=== PATIENT | female | born 2000 ===

== ENCOUNTER → 2020-06-20 | Outpatient (CLI) | payer OTHER | END | disposition home or self-care (01) | LOC: OBS/DEL 01:27 | PROVIDERS: ATTEND Obstetrics & Gynecology | DX: O26.893 Other specified pregnancy related conditions, third trimester (principal); R10.2 Pelvic and perineal pain ==

== ENCOUNTER 2020-06-26 06:16 | Inpatient (IN) | payer OTHER ==
[~2020-06-26] VITALS: Ht 182.9 cm; Wt 3.6 kg
[2020-06-26] MEDS ORDERED: PEPCID40 MG PO (07:10)
== END 2020-06-29 15:30 | disposition home or self-care (01) | DRG 788 ==
LOC: OB/GYN 06:16 → O/R 06:16 → OB/GYN 11:00
PROVIDERS: ADMIT Obstetrics & Gynecology; ATTEND Obstetrics & Gynecology
PROC: 4A1HXFZ Monitoring of Products of Conception, Cardiac Rhythm, External Approach (ICD-10-PCS; 2020-06-26)
PROC: 10D00Z1 Extraction of Products of Conception, Low, Open Approach (ICD-10-PCS; principal; 2020-06-26 11:00)
DX: O98.32 Other infections with a predominantly sexual mode of transmission complicating childbirth (principal); A60.03 Herpesviral cervicitis; Z3A.39 39 weeks gestation of pregnancy; Z37.0 Single live birth; Z20.822 Contact with and (suspected) exposure to COVID-19

== ENCOUNTER 2024-01-17 15:38 | Outpatient (CLI) | payer OTHER ==
[~2024-01-17 15:38] MED LIST: PEPCID40 MG PO
== END 2024-01-17 15:42 | disposition home or self-care (01) ==
LOC: PRENATAL 15:38
PROVIDERS: ATTEND Obstetrics & Gynecology Maternal & Fetal Medicine
DX: Z76.1 Encounter for health supervision and care of foundling (principal)

== ENCOUNTER 2024-04-06 09:17 | Outpatient (CLI) | payer OTHER | END 2024-04-06 09:18 | disposition home or self-care (01) | LOC: PRENATAL 09:17 | PROVIDERS: ATTEND Obstetrics & Gynecology Maternal & Fetal Medicine | DX: O44.00 Complete placenta previa NOS or without hemorrhage, unspecified trimester (principal); O34.219 Maternal care for unspecified type scar from previous cesarean delivery; Z3A.23 23 weeks gestation of pregnancy ==

== ENCOUNTER 2024-06-28 15:36 | Outpatient (CLI) | payer OTHER | END 2024-06-28 15:37 | disposition home or self-care (01) | LOC: PRENATAL 15:36 | PROVIDERS: ATTEND Obstetrics & Gynecology Maternal & Fetal Medicine | DX: O26.849 Uterine size-date discrepancy, unspecified trimester (principal); O36.8199 Decreased fetal movements, unspecified trimester, other fetus; O34.219 Maternal care for unspecified type scar from previous cesarean delivery; Z3A.36 36 weeks gestation of pregnancy ==

== ENCOUNTER 2024-07-27 03:07 | Outpatient (CLI) | payer OTHER ==
[2024-07-27 01:57] VITALS: BP 115/74
[2024-07-27] MEDS ORDERED: RINGERS SOLUTION,LACTATED 1,000 ML IV SCH (03:15)
[2024-07-27] MEDS ORDERED: PRENATAL + DHA1 EAC1 PO (03:24)
[2024-07-27] MEDS ORDERED: FOLIC ACID0.8 M1 PO (03:24)
[2024-07-27 03:51] LABS: PH,URINE 6.5 (5.0-8.0); URINE APPEARANCE Clear; URINE BILIRRUBIN Negative (NEGATIVE); URINE BLOOD Negative; URINE COLOR Yellow; URINE GLUCOSE Negative (NEGATIVE); URINE KETONE Trace (NEGATIVE); URINE LEUKOCYTE Moderate; URINE NITRATE Negative; URINE PROTEIN Trace (NEGATIVE)
[2024-07-27 03:55] LABS: HEMATOCRIT 36.2 % (36.0-45.00); HEMOGLOBIN 12.2 g/dL (12.0-15.00); MEAN CELL VOLUME 84.2 fL (80.00-100.00); MEAN CORPUSCULAR HEMOGLOBIN 28.3 pg (27.00-32.0); MEAN CORPUSCULAR HGB CONC 33.6 g/dl (32.0-36.0); PLATELET COUNT 279 K/uL (150-450); RED CELL DISTRIBUTION WIDTH 14.3 % (11.5-14.5); URINE BACTERIA 2637.5 uL (0.0-1933); URINE EPITHELIAL CELLS 64.7 uL (0.0-38.8); URINE RBC 4.7 uL (0.0-20.8)
[2024-07-27 04:12] LABS: INR < 0.93; PARTIAL THROMBOPLASTIN TIME 25.5 SECONDS (22.0-34.0)
[2024-07-27 04:30] VITALS: BP 122/74
[2024-07-27 04:46] LABS: URINE CAST 0.44 uL (0.0-1.40)
[2024-07-27 06:06] VITALS: BP 106/67; O2SAT 100
[2024-07-27] MEDS ORDERED: CEFAZOLIN SODIUM 1,000 MG VIAL IV SCH (06:15)
== END 2024-07-27 07:18 | disposition still patient (30) ==
LOC: OBS/DEL 03:07
PROVIDERS: ATTEND Obstetrics & Gynecology
DX: O26.893 Other specified pregnancy related conditions, third trimester (principal)

== ENCOUNTER 2024-07-27 07:19 | Inpatient (IN) | payer OTHER ==
[~2024-07-27] VITALS: Ht 182.9 cm; Wt 3.2 kg
[2024-07-27 07:14] VITALS: BP 106/67
[~2024-07-27 07:19] MED LIST changes: +FOLIC ACID0.8 M1 PO; +PRENATAL + DHA1 EAC1 PO
[2024-07-27] MEDS ORDERED: ERYTHROMYCIN BASE OPHT 1GM EACH TUBE OP ONE ×2 (08:05→10:15)
[2024-07-27] MEDS ORDERED: OXYTOCIN 10 UNITS/ML VIAL ONE (08:05)
[2024-07-27] MEDS ORDERED: MEPERIDINE HCL/PF 50 MG/ML VIAL IM PRN (10:00)
[2024-07-27] MEDS ORDERED: PROMETHAZINE HCL 50 MG/ML AMPUL IM PRN (10:00)
[2024-07-27] MEDS ORDERED: CEFAZOLIN SODIUM 1,000 MG VIAL IV ONE (10:15)
[2024-07-27] MEDS ORDERED: OXYTOCIN 10 UNITS/ML VIAL IV ONE (10:15)
[2024-07-27] MEDS ORDERED: MORPHINE SULFATE 4 MG/ML VIAL IV ONE ×2 (10:55→11:10)
[2024-07-27] MEDS ORDERED: PROMETHAZINE HCL 50 MG/ML AMPUL IM ONE (11:43)
[2024-07-27] MEDS ORDERED: ONDANSETRON HCL 2 MG/ML VIAL ONE (13:48)
[2024-07-27 14:20] VITALS: BP 110/72
[2024-07-27 16:00] VITALS: BP 121/74
[2024-07-27 19:54] LABS: HEMATOCRIT 37.7 % (36.0-45.00); HEMOGLOBIN 12.7 g/dL (12.0-15.00); MEAN CELL VOLUME 84.2 fL (80.00-100.00); MEAN CORPUSCULAR HEMOGLOBIN 28.3 pg (27.00-32.0); MEAN CORPUSCULAR HGB CONC 33.6 g/dl (32.0-36.0); PLATELET COUNT 254 K/uL (150-450); RED BLOOD COUNT 4.47 M/uL (4.00-6.00); RED CELL DISTRIBUTION WIDTH 14.4 % (11.5-14.5)
[2024-07-28 01:26] VITALS: BP 118/75
[2024-07-28 08:00] VITALS: BP 114/77
[2024-07-28] MEDS ORDERED: SIMETHICONE 125 MG CAPSULE PO SCH (08:00)
[2024-07-28] MEDS ORDERED: OxyCODONE HCL/APAP UD (PERCOCET) PO PRN (08:00)
[2024-07-28] MEDS ORDERED: PNV,CALCIUM 72/IRON/FOLIC ACID 1 TAB TABLET PO SCH (09:00)
[2024-07-28] MEDS ORDERED: DOCUSATE SODIUM 100MG CAP PO SCH (09:00)
[2024-07-28 16:16] VITALS: BP 122/75
[2024-07-29 00:03] VITALS: BP 97/61
[2024-07-29 08:58] VITALS: BP 93/60
[2024-07-29] MEDS ORDERED: IBUprofen 600 MG TABLET PO PRN (13:45)
[2024-07-29 16:05] VITALS: BP 103/67
[2024-07-29 20:47] VITALS: BP 111/71
[2024-07-30] VITALS: BP 102/66
[2024-07-30 04:00] VITALS: BP 114/70
[2024-07-30 08:17] VITALS: BP 111/76
[2024-07-30 16:16] VITALS: BP 116/79
== END 2024-07-30 16:43 | disposition home or self-care (01) | DRG 785 ==
LOC: LDR → OB/GYN 07:19 → O/R 08:57 → OB/GYN 10:45 → LDR 08-01 11:28
PROVIDERS: ADMIT Obstetrics & Gynecology; ATTEND Obstetrics & Gynecology
PROC: 0UB70ZZ Excision of Bilateral Fallopian Tubes, Open Approach (ICD-10-PCS; 2024-07-27)
PROC: 4A1HXCZ Monitoring of Products of Conception, Cardiac Rate, External Approach (ICD-10-PCS; 2024-07-27)
PROC: 10D00Z1 Extraction of Products of Conception, Low, Open Approach (ICD-10-PCS; principal; 2024-07-27 08:30)
DX: O34.211 Maternal care for low transverse scar from previous cesarean delivery (principal); Z3A.38 38 weeks gestation of pregnancy; Z37.0 Single live birth; Z30.2 Encounter for sterilization